=== PATIENT | male | born 1990 | race Caucasian/White ===

== ENCOUNTER 2017-08-21 15:06 | Emergency (ER) | payer OTHER ==
[2017-08-21] MEDS ORDERED: LORazepam 2 MG/ML INJ ONE (15:32)
[2017-08-21] MEDS ORDERED: LORazepam 2 MG/ML INJ IVP ONE ×2 (15:41→15:54)
[2017-08-21] MEDS ORDERED: NS 1,000 ML IV ONE (15:41)
--- NOTE | 2017-08-21 16:03 | EDPHY ---
H & P Time Seen by Provider: 08/21/17 15:19 HPI/ROS: HPI Alcohol withdrawal. 27-year-old male with long history of alcohol abuse presents to the emergency department from the [facility]. He reports that he was sober for some time by for the last 3 weeks has been on a Cook. He reports he has been drinking large amounts of hard liquor. He reports his last drink was about a day ago. He reports that he was feeling himself with jaw so he went to the [facility]. They evaluated him briefly and were concerned that he may have a seizure so they sent him here to obtain Librium before being treated further at the [facility]. He states that he feels anxious and has been tremulous. No history of seizures. No other complaints. ROS: Constitutional: No fever, no chills. As above. Respiratory: No cough. No shortness of breath. Cardiac: No chest pain, no palpitations. Gastrointestinal: No abdominal pain, no vomiting, no diarrhea. He has had nausea. Musculoskeletal: No back pain. No neck pain. Body aches. Skin: No rashes. Neurological: No headache. No focal weakness or altered sensation. Past medical history: Alcohol abuse. Social history: Nonsmoker. Denies IV drugs or street drugs. Physical Exam: General Appearance: Alert, no distress, mildly anxious. This patient is responding to questions appropriately and in full sentences. This patient appears well-hydrated and well-nourished. Eyes: Pupils equal and round no pallor or injection. No lid edema, erythema or injection. ENT, Mouth: Mucous membranes are moist. The pharyngeal tissues are unremarkable. No edema or swelling. No asymmetry suggestive of abscess. No erythema or exudates. No tongue lacerations or abrasions. Respiratory: There are no retractions, lungs are clear to auscultation with good air movement bilaterally. Cardiovascular: Regular rate and rhythm. No murmur. Gastrointestinal: Abdomen is soft and nontender, no masses, bowel sounds normal. No focal tenderness at McBurney's point. No Murguia sign. Neurological: Motor sensory function is grossly intact. Cranial nerves are normal. Gait is normal. Mild resting tremor. Skin: Warm and dry, no rashes. Musculoskeletal: Neck is supple and nontender. Extremities are symmetrical. All joints range without pain or impingement. Psychiatric: No agitation. No depression. Database: EKG: Imaging: Procedures: Emergency department course: Triage vital signs reviewed. Patient is mildly hypertensive. Vital signs otherwise normal. After my initial evaluation an IV was placed. He was started on IV normal saline with 1 L to be given over an hour. He was given 4 mg of IV Zofran for nausea. He was given 1 mg of IV Ativan. 3:45 p.m., patient re-evaluated. States he feels better. Still mildly tremulous. He was given an additional 0.5 mg of IV Ativan. 4:30 p.m., vital signs reviewed and are normal. Patient feels comfortable being discharged to the [facility]. We will send him with a Librium Dosepak. Transport with a sober reliable ride will be arranged for him. Follow-up and return to emergency department precautions reviewed with him. All of his questions were answered. He was discharged to the [facility] in good condition. Differential Diagnosis: The differential diagnosis on this patient includes but is not limited to alcohol withdrawal. Alcohol withdrawal seizures, delirium tremens unlikely. This represents a partial list of diagnoses considered. These considerations are based on history, physical exam, past history, reassessment and diagnostic testing. Smoking Status: Current every day smoker Constitutional: Initial Vital Signs Temperature (C) 36.3 C 08/21/17 15:11 Heart Rate 63 08/21/17 15:11 Respiratory Rate 18 08/21/17 15:11 Blood Pressure 140/92 H 08/21/17 15:11 O2 Sat (%) 99 08/21/17 15:11 O2 Delivery Mode Room Air Allergies/Adverse Reactions: No Known Allergies Allergy (Unverified 08/21/17 15:11) Home Medications: Medication Instructions Recorded Abdirahman 08/21/17 Medical Decision Making - Data Points Medications Given: Discontinued Medications Sodium Chloride (Ns) 1,000 mls @ 0 mls/hr IV ONCE ONE; Wide Open PRN Reason: Protocol Stop: 08/21/17 15:42 Last Admin: 08/21/17 15:42 Dose: 1,000 mls Lorazepam (Ativan Injection) 1 mg IVP EDNOW ONE Stop: 08/21/17 15:42 Last Admin: 08/21/17 15:42 Dose: 1 mg Departure - Departure Disposition: Home, Routine, Self-Care Clinical Impression: Alcohol withdrawal Condition: Good Instructions: Alcohol Withdrawal (ED) Additional Instructions: Read and follow provided instructions. Follow-up with your primary care physician after detox at the [facility]. Librium will be administered to you by the [facility] staff according to our protocol. Return to the emergency department for worsening symptoms, seizure or other serious concerns. Referrals: NONE *PRIMARY CARE P,. [Primary Care Provider] - As per Instructions [facility] Detox 24 Hours [Outside] - As per Instructions
[2017-08-21] MEDS ORDERED: CHLORDIAZEPOXIDE 25MG PREPK#6 BTL TAKEHOME ONE (16:37)
[2017-08-21 17:12] VITALS: BP 148/74
== END 2017-08-21 17:11 | disposition home or self-care (01) ==
DX: F10.239 Alcohol dependence with withdrawal, unspecified (principal); E86.9 Volume depletion, unspecified; F17.200 Nicotine dependence, unspecified, uncomplicated
CPT/HCPCS: 96374; J2060